=== PATIENT | female | born 1960 | race Caucasian/White ===

== ENCOUNTER 2017-07-20 07:49 | Inpatient (IN) | payer MEDICARE ==
[2017-07-20] MEDS ORDERED: HYDROCODONE/ACETAMINOPHEN 5-325 MG TABLET PO ONE (09:14)
[2017-07-20] MEDS ORDERED: AMPICILLIN SOD/SULBACTAM 3 GM VIAL IV ONE (09:14)
--- NOTE | 2017-07-20 09:14 | ER Document Report ---
ED General - General Chief Complaint: Skin Problem Stated Complaint: SKIN PROBLEM Time Seen by Provider: 07/20/17 08:34 Mode of Arrival: Ambulatory Information source: Patient Notes: 56-year-old female presents with Right to the right wrist with redness. Patient notes she had similar episode a few years ago requiring IV antibiotics and admission. She denies any fevers admits to chills, patient unsure of tetanus status TRAVEL OUTSIDE OF THE [place] IN LAST 30 DAYS: No - HPI Onset: Yesterday Onset/Duration: Persistent Quality of pain: Achy Severity: Mild Pain Level: 1 Associated symptoms: Body/muscle aches, Other Exacerbated by: Denies Relieved by: Denies Similar symptoms previously: Yes Recently seen / treated by doctor: No - Related Data Allergies/Adverse Reactions: smallpox vaccine,live Allergy (Verified 07/20/17 07:54) Past Medical History - Social History Smoking Status: Former Smoker Cigarette use (# per day): No Chew tobacco use (# tins/day): No Smoking Education Provided: No Frequency of alcohol use: Heavy Drug Abuse: Marijuana Family History: Reviewed & Not Pertinent Patient has suicidal ideation: No Patient has homicidal ideation: No Renal/ Medical History: Denies: Hx Peritoneal Dialysis Psychiatric Medical History: Denies: Hx Depression Past Surgical History: Reports: Hx Breast Surgery - left lumpectomy - Immunizations Hx Diphtheria, Pertussis, Tetanus Vaccination: No Review of Systems - Review of Systems Notes: REVIEW OF SYSTEMS: CONSTITUTIONAL : Denies fever, chills, or sweats. Denies recent illness. EENT: Denies eye, ear, throat, or mouth pain or symptoms. Denies nasal or sinus congestion or discharge. Denies throat, tongue, or mouth swelling or difficulty swallowing. CARDIOVASCULAR: Denies chest pain. Denies palpitations or racing or irregular heart beat. Denies ankle edema. RESPIRATORY: Denies cough, cold, or chest congestion. Denies shortness of breath, difficulty breathing, or wheezing. GASTROINTESTINAL: Denies abdominal pain or distention. Denies nausea, vomiting , or diarrhea. Denies blood in vomitus, stools, or per rectum. Denies black, tarry stools. Denies constipation. GENITOURINARY: Denies difficulty urinating, painful urination, burning, frequency, blood in urine, or discharge. FEMALE GENITOURINARY: Denies vaginal bleeding, heavy or abnormal periods, irregular periods. Denies vaginal discharge or odor. MUSCULOSKELETAL: Denies back or neck pain or stiffness. Denies joint pain or swelling. SKIN: Admits to redness pain of the right wrist midforearm HEMATOLOGIC : Denies easy bruising or bleeding. LYMPHATIC: Denies swollen, enlarged glands. NEUROLOGICAL: Denies confusion or altered mental status. Denies passing out or loss of consciousness. Denies dizziness or lightheadedness. Denies headache. Denies weakness or paralysis or loss of use of either side. Denies problems with gait or speech. Denies sensory loss, numbness, or tingling. Denies seizures. PSYCHIATRIC: Denies anxiety or stress. Denies depression, suicidal ideation, or homicidal ideation. ALL OTHER SYSTEMS REVIEWED AND NEGATIVE. PHYSICAL EXAMINATION: GENERAL: Well-appearing, well-nourished and in no acute distress. HEAD: Atraumatic, normocephalic. EYES: Pupils equal round and reactive to light, extraocular movements intact, conjunctiva are normal. ENT: Nares patent, oropharynx clear without exudates. Moist mucous membranes. NECK: Normal range of motion, supple without lymphadenopathy LUNGS: Breath sounds clear to auscultation bilaterally and equal. No wheezes rales or rhonchi. HEART: Regular rate and rhythm without murmurs ABDOMEN: Soft, nontender, nondistended abdomen. No guarding, no rebound. No masses appreciated. Female : deferred Musculoskeletal: Normal range of motion, no pitting or edema. No cyanosis. NEUROLOGICAL: Cranial nerves grossly intact. Normal speech, normal gait. Normal sensory, motor exams PSYCH: Normal mood, normal affect. SKIN: Or wounds noted of the dorsal wrist, no drainage, there is an area of cellulitis from her wrist to elbow as well as streaking up the arm Dictation was performed using [employer] voice recognition software Physical Exam - Vital signs Vitals: Temp Pulse Resp BP Pulse Ox 98.9 F 108 H 16 120/78 98 07/20/17 07:55 07/20/17 07:55 07/20/17 07:55 07/20/17 07:55 07/20/17 07:55 Course - Re-evaluation Re-evalutation: 07/20/17 12:18 Patient has obvious cellulitis secondary to the bite, I believe he will require IV antibiotics due to the significance of the erythema and pain. White count is noted to be 14 blood cultures pending patient started on Unasyn - Vital Signs Vital signs: Temp Pulse Resp BP Pulse Ox 98.9 F 108 H 16 120/78 98 07/20/17 07:55 07/20/17 07:55 07/20/17 07:55 07/20/17 07:55 07/20/17 07:55 - Laboratory Result Diagrams: 07/20/17 09:48 07/20/17 09:48 - Diagnostic Test Radiology reviewed: Image reviewed, Reports reviewed - Soft tissue swelling noted Discharge - Discharge Clinical Impression: Cellulitis of arm, right Cat bite Qualifiers: Encounter type: initial encounter Qualified Code(s): W55.01XA - Bitten by cat, initial encounter Condition: Stable Disposition: ADMITTED INPATIENT Admitting Provider: Hospitalist Unit Admitted: Medical Floor
[2017-07-20] MEDS ORDERED: DIPH/PERTUSS(ACELL)/TETANUS VAC/PF 0.5 ML SYR (>=10YO) IM ONE (09:17)
[2017-07-20] MEDS ORDERED: NORMAL SALINE 1000 ML 1,000 ML IV ONE (09:18)
[2017-07-20] MEDS ORDERED: ACETAMINOPHEN 325 MG TABLET PO PRN ×2 (09:49→17:41)
--- NOTE | 2017-07-20 09:51 | RADIOLOGY REPORT (SQ) ---
EXAM DESCRIPTION: WRIST RIGHT 3 VIEWS COMPLETED DATE/TIME: 07/20/2017 9:33 am REASON FOR STUDY: cat bite COMPARISON: Right hand radiographs 07/21/2015 Right hand MRI 07/22/2015 NUMBER OF VIEWS: Three views. TECHNIQUE: AP, lateral, and oblique radiographic images acquired of the right wrist. LIMITATIONS: None. FINDINGS: Diffuse dorsal right wrist soft tissue swelling. No soft tissue gas or radiopaque foreign body No definite puncture wound into the distal radius or ulna. No definite puncture wound into any carpa l bones. No fracture or malalignment IMPRESSION: Diffuse dorsal right wrist soft tissue swelling. TECHNICAL DOCUMENTATION: JOB ID: [id number] [email or web address]- All Rights Reserved
[2017-07-20 10:04] LABS: ABSOLUTE BASOPHILS # (AUTO) 0.1 10^3/uL (0.0-0.2); ABSOLUTE LYMPHOCYTES (AUTO) 1.3 10^3/uL (0.5-4.7); ABSOLUTE MONOCYTES (AUTO) 0.9 10^3/uL (0.1-1.4); ABSOLUTE NEUT (AUTO) 11.8 10^3/uL (1.7-8.2); BASOPHILS % (AUTO) 0.4 % (0-2); EOSINOPHILS % (AUTO) 0.1 % (0-6); HEMATOCRIT 40.7 % (36.0-47.0); HEMOGLOBIN 14.1 g/dL (12.0-15.5); LYMPHOCYTES % (AUTO) 9.2 % (13-45); MEAN CORPUSCULAR HEMOGLOBIN 32.2 pg (27.0-33.4); MEAN CORPUSCULAR HGB CONC 34.5 g/dL (32.0-36.0); MEAN CORPUSCULAR VOLUME 93 fl (80-97); MONOCYTES % (AUTO) 6.1 % (3-13); PLATELET COUNT 356 10^3/uL (150-450); RED BLOOD COUNT 4.37 10^6/uL (3.72-5.28); RED CELL DISTRIBUTION WIDTH 12.7 % (11.5-14.0); SEGMENTED NEUTROPHILS % (AUTO) 84.2 % (42-78); TOTAL CELLS COUNTED % (AUTO) 100 %
[2017-07-20 10:28] LABS: ALANINE AMINOTRANSFERASE 41 U/L (9-52); ALBUMIN 4.5 g/dL (3.5-5.0); ALKALINE PHOSPHATASE 82 U/L (38-126); ANION GAP 10 (5-19); ASPARTATE AMINO TRANSFERASE 48 U/L (14-36); BILIRUBIN,DIRECT 0.7 mg/dL (0.0-0.4); BILIRUBIN,TOTAL 1.2 mg/dL (0.2-1.3); BLOOD UREA NITROGEN 6 mg/dL (7-20); CARBON DIOXIDE 27 mmol/L (22-30); CHLORIDE 99 mmol/L (98-107); GLUCOSE 109 mg/dL (75-110); POTASSIUM 4.4 mmol/L (3.6-5.0); SODIUM 135.6 mmol/L (137-145); TOTAL PROTEIN 7.7 g/dL (6.3-8.2)
[2017-07-20] MEDS ORDERED: DIAZEPAM 5 MG TABLET PO PRN (10:52)
--- NOTE | 2017-07-20 11:04 | PDOC H&P ---
History of Present Illness Admission Date/PCP: 07/20/17 09:26 Patient complains of: right arm pain and spreading redness History of Present Illness: TORIN SMITH is a 56 year old female who last night was bitten on the right wrist by a feral cat that she was trying to feed. The pain and redness and swelling progressed overnight and was worsening this am so she came to the ED. This happened 2 years ago and she was treated in the hospital with IV antibiotics at that time. She is disabled wtih PTSD and panic disorder, ptherwise recently has been in her normal state of health. She reports no fever but had chills this am, no CP or SOB, no abd pain but some nausea. Past Medical History Cardiac Medical History: Reports: None Pulmonary Medical History: Reports: None EENT Medical History: Reports: None Neurological Medical History: Reports: None Endocrine Medical History: Reports: None Renal/ Medical History: Reports: None Malignancy Medical History: Reports: Other Malignancy History Note: Signig fam hx breast and ovarian CA and she has had 2 left breast biopsies with atypia and regular follow up. 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 Lives with: Spouse/Significant other Smoking Status: Former Smoker Frequency of Alcohol Use: Heavy Amount of Alcoholic Beverages Per Day: 4 Last Alcohol Use: 07/19/17 Hx Recreational Drug Use: No Drugs: None Hx Prescription Drug Abuse: No Past Social History Note: has 2 adult children, she lives in the local area Family History Family History: Reviewed & Not Pertinent, Malignancy - mother with complications related to breast CA, multiple family members with breast, ovarian and gastrica CA Parental Family History Reviewed: Yes - see above, inaddition her father in MVA when she was a child Children Family History Reviewed: Yes - reviewed, none significant Sibling(s) Family History Reviewed.: Yes - reviewed Medication/Allergy Home Medications: Diazepam [Valium] 5 mg PO DAILYP PRN 07/20/17 Trazodone HCl [Desyrel 50 mg Tablet] 50 mg PO HSP PRN 07/20/17 Allergies/Adverse Reactions: smallpox vaccine,live Allergy (Verified 07/20/17 07:54) Review of Systems Constitutional: PRESENT: chills. ABSENT: fever(s), headache(s), weakness Eyes: ABSENT: visual disturbances Ears: ABSENT: hearing changes Nose, Mouth, and Throat: ABSENT: headache(s), sore throat Cardiovascular: PRESENT: edema. ABSENT: chest pain, dyspnea on exertion Respiratory: ABSENT: cough, dyspnea Gastrointestinal: PRESENT: nausea. ABSENT: abdominal pain, constipation, diarrhea, vomiting Genitourinary: ABSENT: difficulty urinating Musculoskeletal: PRESENT: joint swelling Integumentary: PRESENT: erythema, lesions, wounds Neurological: ABSENT: confusion, dizziness, memory loss, numbness, syncope Psychiatric: PRESENT: other - PTSD and panic DO longstanding Endocrine: ABSENT: cold intolerance, heat intolerance, polydipsia, polyphagia, polyuria Hematologic/Lymphatic: ABSENT: easy bleeding, easy bruising Allergic/Immunologic: ABSENT: seasonal rhinorrhea Physical Exam Vital Signs: Temp Pulse Resp BP Pulse Ox 98.9 F 108 H 16 120/78 98 07/20/17 07:55 07/20/17 07:55 07/20/17 07:55 07/20/17 07:55 07/20/17 07:55 General appearance: PRESENT: mild distress, thin, well-developed, well-nourished Head exam: PRESENT: atraumatic, normocephalic Eye exam: PRESENT: conjunctiva pink, EOMI. ABSENT: periorbital swelling, scleral icterus Ear exam: PRESENT: normal external ear exam. ABSENT: bleeding Mouth exam: PRESENT: moist, neck supple Neck exam: ABSENT: lymphadenopathy Respiratory exam: PRESENT: clear to auscultation josette, symmetrical, unlabored. ABSENT: accessory muscle use, chest wall tenderness, crackles, decreased breath sounds, prolonged expiratory phas, rales, retraction, rhonchi, stridor, tachypnea, wheezes Cardiovascular exam: PRESENT: tachycardia. ABSENT: systolic murmur Vascular exam: PRESENT: normal capillary refill GI/Abdominal exam: PRESENT: normal bowel sounds, soft. ABSENT: ascites, distended, firm, guarding, rebound, rigid, tenderness Rectal exam: PRESENT: deferred Gentrourinary exam: ABSENT: indwelling catheter Extremities exam: PRESENT: joint swelling, other - right wrist with edema and TTP, small puncture wound with no exudate Neurological exam: PRESENT: alert, altered, awake, oriented to person, oriented to place, oriented to situation, CN II-XII grossly intact Psychiatric exam: PRESENT: anxious Focused psych exam: ABSENT: paranoid, pressured speech, psychomotor agitation, restlessness Skin exam: PRESENT: other - cellulitis right wrist with proximal spread up to mid bicepts Results Laboratory Results: 07/20/17 09:48 07/20/17 09:48 WBC 14.0 H RBC 4.37 Hgb 14.1 Hct 40.7 MCV 93 MCH 32.2 MCHC 34.5 RDW 12.7 Plt Count 356 Seg Neutrophils % 84.2 H Lymphocytes % 9.2 L Monocytes % 6.1 Eosinophils % 0.1 Basophils % 0.4 Absolute Neutrophils 11.8 H Absolute Lymphocytes 1.3 Absolute Monocytes 0.9 Absolute Eosinophils 0.0 Absolute Basophils 0.1 Impressions: Wrist X-Ray 07/20/17 09:14 IMPRESSION: Diffuse dorsal right wrist soft tissue swelling. -no foreign body seen Assessment & Plan - Diagnosis (1) Tachycardia determined by examination of pulse Is this a current diagnosis for this admission?: Yes Plan: related to pain and infection, will treat pain and infection as per belwo, monitor HR on tele (2) Cellulitis of arm, right Is this a current diagnosis for this admission?: Yes Plan: secondary to cat bite, will cont unasym as started in ED, blood cultures pending , IV fluids, monitor cellulitis for improvment and change ABX if worsens (3) Leukocytosis Qualifiers: Qualified Code(s): D72.829 - Elevated white blood cell count, unspecified Is this a current diagnosis for this admission?: Yes Plan: due to infection from cat bite, will cont abx and check CBC in the am (4) Acute pain due to injury Is this a current diagnosis for this admission?: Yes Plan: will use tylenol 650 mg q 6 hrs and ibuprofen 600 mg q 6 hrs for 2 days. If this is not effective will consider low dose opioid. (5) PTSD (post-traumatic stress disorder) Is this a current diagnosis for this admission?: Yes Plan: will order her home med valium 5 mg pi BID prn panic (6) Insomnia Qualifiers: Insomnia type: drug-induced Qualified Code(s): F19.982 - Other psychoactive substance use, unspecified with psychoactive substance-induced sleep disorder Plan: secondary to wellbutrin use, now DCed but insomnia persists. WIll her her home trazodone 50 mg po HS prn. - Time Time Spent: Greater than 70 Minutes Medications reviewed and adjusted accordingly: Yes Anticipated discharge: Home Within: within 72 hours - Inpatient Certification Medical Necessity: Need Close Monitoring Due to Risk of Patient Decompensation, Need For IV Fluids, Need for IV Antibiotics Post Hospital Care: D/C Manager Android Documentation
[2017-07-20] MEDS ORDERED: PIPERACILLIN/TAZOBACTAM 3.375 GM VIAL IV SCH (11:15)
[2017-07-20] MEDS ORDERED: ACETAMINOPHEN 325 MG TABLET PO SCH (12:00)
[2017-07-20] MEDS ORDERED: IBUPROFEN 600 MG TABLET PO SCH (12:00)
[2017-07-20] MEDS: ENOXAPARIN SODIUM INJ 40 MG/0.4 ML DISP.SYRIN SUBCUT SCH (12:12)
[2017-07-20] MEDS: PIPERACILLIN SODIUM/TAZOBACTAM 3.375 GM in NORMAL SALINE 100 ML IV SCH ×3 (13:10→23:10)
[2017-07-20] MEDS: RINGERS SOLUTION,LACTATED 1,000 ML IV SCH (13:12)
[2017-07-20] MEDS: IBUPROFEN 800 MG TABLET PO PRN (18:16)
[2017-07-20] MEDS: TRAZODONE HCL 50 MG TABLET PO PRN (23:10)
[2017-07-21 05:24] LABS: HEMATOCRIT 35.3 % (36.0-47.0); MEAN CORPUSCULAR HEMOGLOBIN 32.1 pg (27.0-33.4); MEAN CORPUSCULAR VOLUME 94 fl (80-97); PLATELET COUNT 272 10^3/uL (150-450); RED BLOOD COUNT 3.74 10^6/uL (3.72-5.28); RED CELL DISTRIBUTION WIDTH 13.1 % (11.5-14.0); WHITE BLOOD COUNT 8.9 10^3/uL (4.0-10.5)
[2017-07-21] MEDS: PIPERACILLIN SODIUM/TAZOBACTAM 3.375 GM in NORMAL SALINE 100 ML IV SCH ×4 (05:32→23:53)
[2017-07-21] MEDS: RINGERS SOLUTION,LACTATED 1,000 ML IV SCH ×2 (05:33→13:41)
[2017-07-21] MEDS: IBUPROFEN 800 MG TABLET PO PRN ×2 (05:33→14:40)
[2017-07-21 05:49] LABS: BLOOD UREA NITROGEN 5 mg/dL (7-20); CALCIUM 9.4 mg/dL (8.4-10.2); CHLORIDE 106 mmol/L (98-107); GLUCOSE 92 mg/dL (75-110)
[2017-07-21 06:02] LABS: ANION GAP 5 (5-19); CARBON DIOXIDE 26 mmol/L (22-30); POTASSIUM 3.9 mmol/L (3.6-5.0); SODIUM 137.4 mmol/L (137-145)
[2017-07-21] MEDS: ENOXAPARIN SODIUM INJ 40 MG/0.4 ML DISP.SYRIN SUBCUT SCH (10:56)
[2017-07-21] MEDS ORDERED: VANCOMYCIN HCL INJ 1000 MG VIAL IV SCH (12:15)
[2017-07-21] MEDS: TRAMADOL HCL 50 MG TABLET PO PRN ×2 (12:16→18:59)
--- NOTE | 2017-07-21 14:27 | RADIOLOGY REPORT (SQ) ---
EXAM DESCRIPTION: FOREARM RIGHT COMPLETED DATE/TIME: 07/21/2017 2:09 pm REASON FOR STUDY: cat big, worsening swelling COMPARISON: None. NUMBER OF VIEWS: Two views. TECHNIQUE: Two radiographic images acquired of the right forearm, including elbow and wrist in at le ast one projection. LIMITATIONS: None. FINDINGS: MINERALIZATION: Normal. BONES: No acute fracture. No worrisome bone lesions. SOFT TISSUES: No obvious swelling or foreign body. OTHER: No other significant finding. IMPRESSION: NEGATIVE STUDY OF THE RIGHT FOREARM. NO RADIOGRAPHIC EVIDENCE OF ACUTE INJURY. TECHNICAL DOCUMENTATION: JOB ID: [id number] [employer]- All Rights Reserved
[2017-07-21] MEDS: VANCOMYCIN HCL 750 MG in DEXTROSE 5%-WATER 250 ML IV SCH (14:31)
--- NOTE | 2017-07-21 15:54 | PDOC PROGRESS REPORT ---
Subjective Progress Note for:: 07/21/17 Subjective:: Admitted yesterday after cat bite to right forearm. Was started on Zosyn. Overnight and this AM, states that pain and swelling is worsening. Feels erythema has extended. Subjective fevers. Some chills. Denies CP, SOB, abdominal pain, NV. THis is second cat bite, last was in 2016. Reason For Visit: CELLULITIS OF RIGHT ARM Physical Exam Vital Signs: Temp Pulse Resp BP Pulse Ox 98.7 F 87 12 115/71 97 07/21/17 11:00 07/21/17 11:00 07/21/17 08:00 07/21/17 11:00 07/21/17 11:00 Intake & Output 07/20/17 07/21/17 07/22/17 06:59 06:59 06:59 Intake Total 4062 Output Total 2 Balance 4060 Weight 59.1 kg General appearance: PRESENT: mild distress - Secondary to pain Head exam: PRESENT: atraumatic Mouth exam: PRESENT: moist Respiratory exam: PRESENT: unlabored. ABSENT: tachypnea, wheezes Cardiovascular exam: PRESENT: RRR. ABSENT: systolic murmur, tachycardia GI/Abdominal exam: PRESENT: soft. ABSENT: distended, tenderness Extremities exam: PRESENT: other - Right upper extremity swelling and erythema extending from hand to elbow. 2 bite tate visible. No active drainage. Extremity warm. Good radial pulses. No evidence of compartment syndrome. Neurological exam: PRESENT: alert, awake, CN II-XII grossly intact Psychiatric exam: ABSENT: anxious Skin exam: PRESENT: warm Results Laboratory Results: 07/21/17 05:10 07/21/17 05:10 07/21/17 07/21/17 05:10 05:10 WBC 8.9 RBC 3.74 Hgb 12.0 D Hct 35.3 L MCV 94 MCH 32.1 MCHC 34.0 RDW 13.1 Plt Count 272 Sodium 137.4 Potassium 3.9 Chloride 106 Carbon Dioxide 26 Anion Gap 5 BUN 5 L Creatinine 0.63 Est GFR ( Amer) > 60 Est GFR (Non-Af Amer) > 60 Glucose 92 Calcium 9.4 Impressions: Wrist X-Ray 07/20/17 09:14 IMPRESSION: Diffuse dorsal right wrist soft tissue swelling. Forearm X-Ray 07/21/17 00:00 IMPRESSION: NEGATIVE STUDY OF THE RIGHT FOREARM. NO RADIOGRAPHIC EVIDENCE OF ACUTE INJURY. Assessment & Plan - Diagnosis (1) Cat bite Qualifiers: Encounter type: initial encounter Qualified Code(s): W55.01XA - Bitten by cat, initial encounter Is this a current diagnosis for this admission?: Yes Plan: Right forearm Bite by stray [place] cat - Right Upper extremity warm and erythematous on exam with extension of erythema beyond black marker broader from 2/2 - Blood cultures * 2 NGTD at 24 hours - Was on Zosyn, due to worsening erythema, swelling, and pain, broadened coverage and added Vanc to cover MRSA - Repeat xray today without evidence of soft tissue swelling - If pain persists or there is any evidence of compartment syndrome, will consult general surgery or ortho for evaluation (2) Acute pain due to injury Is this a current diagnosis for this admission?: Yes Plan: Pain worse on 2/3 - Added Tramadol 25mg q6 hours PRN, has ibuprofen 800mg q3 horus PRN - OK with adding IV pain meds if pain worsens - CTM (3) Cellulitis of arm, right Is this a current diagnosis for this admission?: Yes Plan: Per above. - Time Time Spent with patient: Less than 15 minutes Anticipated discharge: Home, Home with Homehealth - Possibly if IV antibiotics are required Within: within 48 hours
[2017-07-21] MEDS: TRAZODONE HCL 50 MG TABLET PO PRN (22:31)
[2017-07-22] MEDS: VANCOMYCIN HCL 750 MG in DEXTROSE 5%-WATER 250 ML IV SCH ×2 (02:50→13:53)
[2017-07-22] MEDS: RINGERS SOLUTION,LACTATED 1,000 ML IV SCH ×2 (02:50→08:57)
[2017-07-22] MEDS: PIPERACILLIN SODIUM/TAZOBACTAM 3.375 GM in NORMAL SALINE 100 ML IV SCH ×3 (05:14→17:51)
[2017-07-22] MEDS: TRAMADOL HCL 50 MG TABLET PO PRN ×2 (05:15→17:50)
[2017-07-22 06:09] LABS: HEMATOCRIT 33.2 % (36.0-47.0); HEMOGLOBIN 11.1 g/dL (12.0-15.5); MEAN CORPUSCULAR HEMOGLOBIN 31.8 pg (27.0-33.4); MEAN CORPUSCULAR HGB CONC 33.5 g/dL (32.0-36.0); MEAN CORPUSCULAR VOLUME 95 fl (80-97); PLATELET COUNT 252 10^3/uL (150-450); RED BLOOD COUNT 3.51 10^6/uL (3.72-5.28); RED CELL DISTRIBUTION WIDTH 12.7 % (11.5-14.0)
[2017-07-22 06:33] LABS: ANION GAP 5 (5-19); BLOOD UREA NITROGEN 4 mg/dL (7-20); CALCIUM 9.3 mg/dL (8.4-10.2); CARBON DIOXIDE 25 mmol/L (22-30); CHLORIDE 106 mmol/L (98-107); GLUCOSE 83 mg/dL (75-110); SODIUM 136.1 mmol/L (137-145)
[2017-07-22] MEDS: IBUPROFEN 800 MG TABLET PO PRN (08:54)
[2017-07-22] MEDS: ENOXAPARIN SODIUM INJ 40 MG/0.4 ML DISP.SYRIN SUBCUT SCH (08:54)
[2017-07-22] MEDS ORDERED: IBUPROFEN 600 MG TABLET PO PRN ×3 (12:00)
[2017-07-22] MEDS ORDERED: ACETAMINOPHEN 325 MG TABLET PO PRN ×3 (12:00)
--- NOTE | 2017-07-22 17:53 | PDOC PROGRESS REPORT ---
Subjective Progress Note for:: 07/22/17 Subjective:: Doing much better. Erythema, pain, and swelling reduced. Good pain control with current pain regimen. Wants to do IV pain meds for one more day and then switch to PO. Denies CP, SOB, abdominal pain, NV. LIkely discharge tomorrow.. Reason For Visit: CELLULITIS OF RIGHT ARM Physical Exam Vital Signs: Temp Pulse Resp BP Pulse Ox 98.0 F 61 18 114/69 100 07/22/17 15:40 07/22/17 15:40 07/22/17 15:40 07/22/17 15:40 07/22/17 15:40 Intake & Output 07/21/17 07/22/17 07/23/17 06:59 06:59 06:59 Intake Total 4062 4945 542 Output Total 2 Balance 4060 4945 542 Weight 59.1 kg 59.1 kg General appearance: PRESENT: no acute distress, thin Head exam: PRESENT: atraumatic, normocephalic Mouth exam: PRESENT: moist Respiratory exam: PRESENT: unlabored Cardiovascular exam: PRESENT: RRR. ABSENT: tachycardia GI/Abdominal exam: PRESENT: soft. ABSENT: distended Extremities exam: PRESENT: other - Right upper extremity swelling and erythema improved compared to 07/21 exam. 2 bite tate visible - unchaged. No active drainage. Extremity warm. Good radial pulse Neurological exam: PRESENT: alert, awake, CN II-XII grossly intact Skin exam: PRESENT: warm Results Laboratory Results: 07/22/17 05:23 07/22/17 05:23 07/22/17 07/22/17 05:23 05:23 WBC 8.0 RBC 3.51 L Hgb 11.1 L Hct 33.2 L MCV 95 MCH 31.8 MCHC 33.5 RDW 12.7 Plt Count 252 Sodium 136.1 L Potassium 4.0 Chloride 106 Carbon Dioxide 25 Anion Gap 5 BUN 4 L Creatinine 0.65 Est GFR ( Amer) > 60 Est GFR (Non-Af Amer) > 60 Glucose 83 Calcium 9.3 Impressions: Wrist X-Ray 07/20/17 09:14 IMPRESSION: Diffuse dorsal right wrist soft tissue swelling. Forearm X-Ray 07/21/17 00:00 IMPRESSION: NEGATIVE STUDY OF THE RIGHT FOREARM. NO RADIOGRAPHIC EVIDENCE OF ACUTE INJURY. Assessment & Plan - Diagnosis (1) Cat bite Qualifiers: Encounter type: initial encounter Qualified Code(s): W55.01XA - Bitten by cat, initial encounter Is this a current diagnosis for this admission?: Yes Plan: Right forearm Bite by stray [place] cat, improved - Right Upper extremity warm and erythematous decreased - Blood cultures * 2 NGTD at 48 hours - Currently on Vanc and Zosyn, continue until 07/23 and then can switch to PO with MRSA coverage - D/c to home on 07/23 (2) Acute pain due to injury Is this a current diagnosis for this admission?: Yes Plan: Pain much better controlled on 07/22 - Continue Tramadol 25mg q6 hours PRN + ibuprofen 800mg q3 horus PRN (3) Cellulitis of arm, right Is this a current diagnosis for this admission?: Yes - Time Time Spent with patient: Less than 15 minutes Anticipated discharge: Home Within: within 24 hours
[2017-07-23] MEDS: PIPERACILLIN SODIUM/TAZOBACTAM 3.375 GM in NORMAL SALINE 100 ML IV SCH ×2 (01:19→05:56)
[2017-07-23] MEDS: TRAZODONE HCL 50 MG TABLET PO PRN (01:20)
[2017-07-23] MEDS: VANCOMYCIN HCL 750 MG in DEXTROSE 5%-WATER 250 ML IV SCH (01:55)
[2017-07-23] MEDS: IBUPROFEN 800 MG TABLET PO PRN (04:16)
[2017-07-23 06:19] LABS: HEMATOCRIT 32.7 % (36.0-47.0); HEMOGLOBIN 10.9 g/dL (12.0-15.5); MEAN CORPUSCULAR HEMOGLOBIN 31.5 pg (27.0-33.4); MEAN CORPUSCULAR HGB CONC 33.4 g/dL (32.0-36.0); MEAN CORPUSCULAR VOLUME 94 fl (80-97); PLATELET COUNT 259 10^3/uL (150-450); RED BLOOD COUNT 3.47 10^6/uL (3.72-5.28); RED CELL DISTRIBUTION WIDTH 12.9 % (11.5-14.0); WHITE BLOOD COUNT 6.2 10^3/uL (4.0-10.5)
[2017-07-23 06:38] LABS: ANION GAP 5 (5-19); BLOOD UREA NITROGEN 4 mg/dL (7-20); CALCIUM 9.4 mg/dL (8.4-10.2); CARBON DIOXIDE 28 mmol/L (22-30); CHLORIDE 106 mmol/L (98-107); GLUCOSE 83 mg/dL (75-110); POTASSIUM 3.7 mmol/L (3.6-5.0); SODIUM 139.2 mmol/L (137-145)
[2017-07-23 08:02] VITALS: BP 119/74
--- NOTE | 2017-07-23 15:31 | PDOC DISCHARGE SUMMARY ---
General - Admit/Disc Date/PCP Admission Date/Primary Care Provider: 07/20/17 09:26 Discharge Date: 07/23/17 - Discharge Diagnosis (1) Cellulitis of arm, right Is this a current diagnosis for this admission?: Yes (2) Cat bite Is this a current diagnosis for this admission?: Yes (3) Acute pain due to injury Is this a current diagnosis for this admission?: Yes (4) PTSD (post-traumatic stress disorder) Is this a current diagnosis for this admission?: Yes - Additional Information Resuscitation Status: Full Code Discharge Diet: As Tolerated Discharge Activity: Activity As Tolerated Prescriptions: Amox Tr/Potassium Clavulanate [Augmentin 875-125 mg Tablet] 1 tab PO BID #20 tablet Tramadol HCl [Ultram 50 mg Tablet] 25 mg PO Q6HP PRN #14 tablet PRN Reason: Home Medications: Diazepam [Valium] 5 mg PO DAILYP PRN 07/20/17 Trazodone HCl [Desyrel 50 mg Tablet] 50 mg PO HSP PRN 07/20/17 Amox Tr/Potassium Clavulanate [Augmentin 875-125 mg Tablet] 1 tab PO BID #20 tablet 07/23/17 Tramadol HCl [Ultram 50 mg Tablet] 25 mg PO Q6HP PRN #14 tablet 07/23/17 History of Present Illness History of Present Illness: TORIN SMITH is a 56 year old female who was bitten on the right wrist by a feral cat that she was trying to feed. The pain, redness and swelling progressed overnight and she came to the ED. Had similar episode 2 years ago and she was treated in the hospital with IV antibiotics at that time. She is disabled with PTSD and panic disorder, otherwise recently has been in her normal state of health. She reported no fever but had chills and nausea on the day of presentation to ED.. Hospital Course Hospital Course: Patient was admitted under the hospitalist service. Patient was placed on Zosyn and vancomycin with further improvement of cellulitic process. Patient has been educated about local care of puncture wounds. Since patient had achieved maximum benefit of hospitalization stay prompted to discharge under stable condition Physical Exam Vital Signs: Temp Pulse Resp BP Pulse Ox 98.0 F 74 17 112/71 97 07/22/17 23:16 07/22/17 23:16 07/22/17 23:16 07/22/17 23:16 07/22/17 23:16 Intake & Output 07/22/17 07/23/17 07/24/17 06:59 06:59 06:59 Intake Total 4945 4068 Output Total 3000 Balance 4945 1068 Weight 59.1 kg 60 kg General appearance: PRESENT: cooperative, well-developed, well-nourished Head exam: PRESENT: atraumatic, normocephalic Eye exam: PRESENT: EOMI, PERRLA Ear exam: PRESENT: normal external ear exam Mouth exam: PRESENT: moist, neck supple Neck exam: PRESENT: full ROM. ABSENT: JVD, lymphadenopathy, tenderness Respiratory exam: PRESENT: clear to auscultation josette Cardiovascular exam: PRESENT: RRR. ABSENT: diastolic murmur, systolic murmur Vascular exam: PRESENT: normal capillary refill GI/Abdominal exam: PRESENT: normal bowel sounds, soft. ABSENT: tenderness Extremities exam: PRESENT: other - Puncture wounds noted to the dorsal aspect of right forearm. Redness and swelling improved when compared to admission ( patient showed a picture of the right forearm obtained through her cell phone) Neurological exam: PRESENT: alert, awake, oriented to person, oriented to place , oriented to time, oriented to situation, CN II-XII grossly intact Psychiatric exam: PRESENT: appropriate affect, normal mood Skin exam: PRESENT: other - Please refer to extremities Results Laboratory Results: 07/23/17 05:53 07/23/17 05:53 07/23/17 07/23/17 07/23/17 01:45 05:53 05:53 WBC 6.2 RBC 3.47 L Hgb 10.9 L Hct 32.7 L MCV 94 MCH 31.5 MCHC 33.4 RDW 12.9 Plt Count 259 Sodium 139.2 Potassium 3.7 Chloride 106 Carbon Dioxide 28 Anion Gap 5 BUN 4 L Creatinine 0.63 0.63 Est GFR ( Amer) > 60 > 60 Est GFR (Non-Af Amer) > 60 > 60 Glucose 83 Calcium 9.4 Impressions: Wrist X-Ray 07/20/17 09:14 IMPRESSION: Diffuse dorsal right wrist soft tissue swelling. Forearm X-Ray 07/21/17 00:00 IMPRESSION: NEGATIVE STUDY OF THE RIGHT FOREARM. NO RADIOGRAPHIC EVIDENCE OF ACUTE INJURY. Plan Discharge Plan: Discharge home Time Spent: Less than 30 Minutes
== END 2017-07-23 10:57 | disposition home or self-care (01) | DRG 603 ==
LOC: ER 07:49 → EH 09:26 → 4S 12:15
PROVIDERS: ADMIT Emergency Medicine; ATTEND Emergency Medicine
PROC: 3E0234Z Introduction of Serum, Toxoid and Vaccine into Muscle, Percutaneous Approach (ICD-10-PCS; principal; 2017-07-20)
DX: L03.113 Cellulitis of right upper limb (principal); W55.01XA Bitten by cat, initial encounter; Y99.9 Unspecified external cause status; F41.0 Panic disorder [episodic paroxysmal anxiety]; F43.10 Post-traumatic stress disorder, unspecified; G89.11 Acute pain due to trauma; D72.829 Elevated white blood cell count, unspecified; G47.00 Insomnia, unspecified; T43.295A Adverse effect of other antidepressants, initial encounter; Z23 Encounter for immunization; Z79.899 Other long term (current) drug therapy; Z80.3 Family history of malignant neoplasm of breast; Z80.41 Family history of malignant neoplasm of ovary; Z87.891 Personal history of nicotine dependence; Z88.7 Allergy status to serum and vaccine; Z80.0 Family history of malignant neoplasm of digestive organs
CPT/HCPCS: 36415; 80048; 80053; 80202; 82565; 85025; 85027; 87040; 90715; 99284; J0295; J1650; J2543; J3370; J7030; J7060; J7120

== ENCOUNTER → 2017-08-14 | Outpatient (CLI) | payer MEDICARE ==
--- NOTE | 2017-08-14 16:48 | RADIOLOGY REPORT (SQ) ---
EXAM DESCRIPTION: CHEST PA/LATERAL COMPLETED DATE/TIME: 08/14/2017 4:11 pm REASON FOR STUDY: CHRONIC OBSTRUCTIVE PULMONARY DISEASE, UNSPECIFIED COMPARISON: None. EXAM PARAMETERS: NUMBER OF VIEWS: two views TECHNIQUE: Digital Frontal and Lateral radiographic views of the chest acquired. RADIATION DOSE: NA LIMITATIONS: none FINDINGS: LUNGS AND PLEURA: Lungs are hyperinflated and hyperlucent from obstructive disease. No fo nish infiltrates. No pleural effusion. No pneumothorax. MEDIASTINUM AND HILAR STRUCTURES: No masses or contour abnormalities. HEART AND VASCULAR STRUCTURES: Heart normal size. No evidence for failure. BONES: Osteoporotic HARDWARE: None in the chest. OTHER: No other significant finding. IMPRESSION: Obstructive lung disease. No acute finding TECHNICAL DOCUMENTATION: JOB ID: [id number] [employer]- All Rights Reserved Reading location - IP/workstation name: [email or web address]
--- NOTE | 2017-08-14 20:34 | EKG REPORT ---
SEVERITY:- NORMAL ECG - SINUS RHYTHM : Confirmed by: Nabil Sneed MD 14-Aug-2017 20:34:18
== END ==
LOC: OD 15:36
PROVIDERS: ATTEND Obstetrics & Gynecology Gynecology
DX: R07.9 Chest pain, unspecified (principal); J44.9 Chronic obstructive pulmonary disease, unspecified
CPT/HCPCS: 71046; 93005; 93010

== ENCOUNTER → 2017-10-12 | Outpatient (CLI) | payer MEDICARE ==
--- NOTE | 2017-10-12 13:29 | RADIOLOGY REPORT (SQ) ---
EXAM DESCRIPTION: CT LUNG CANCER SCREENING COMPLETED DATE/TIME: 10/12/2017 10:02 am REASON FOR STUDY: Z87.891 PERSONAL HISTORY OF NICOTINE DEPENDENCE Z87.891 PERSONAL HISTORY OF NICOT INE DEPENDENCE Has the patient had a Chest CT scan within the past year? Was the patient offered tobacco cessation counseling? Was the patient engaged in shared decision making for this test? Does the patient have signs or symptoms of Lung Cancer? Is the patient a smoker? How many packs per year? How many years since quitting smoking? Patients age: COMPARISON: None. TECHNIQUE: Low Dose CT scan performed of the chest without intravenous contrast for purposes of scre ening for lung cancer. Images reviewed with lung, soft tissue and bone windows. Reconstructed coron al and sagittal MPR images reviewed. All images stored on PACS. All CT scanners at this facility use dose modulation, iterative reconstruction, and/or weight based d osing when appropriate to reduce radiation dose to as low as reasonably achievable (ALARA). [facility]: Dose Right [facility]: CareDose [facility]: Dose Right [facility]: Teradose 4D [facility]: Tilt RADIATION DOSE: CT Rad equipment meets quality standard of care and radiation dose reduction techniq ues were employed. CTDIvol: 1.9 mGy. DLP: 78 mGy-cm. mGy. . LIMITATIONS: None FINDINGS: LUNGS AND PLEURA: No masses or nodules. No pleural effusions or calcifications. No pne umothorax. No scarring or interstitial changes. HILAR AND MEDIASTINAL STRUCTURES: No identified masses. No abnormal nodes. HEART AND VASCULAR STRUCTURES: No aneurysm. Small pericardial effusion. No cardiac devices. CORONARY ARTERY CALCIFICATIONS: Mild to moderate calcifications. UPPER ABDOMEN, THYROID, BONES, OTHER SOFT TISSUES: No significant findings. IMPRESSION: NO SIGNIFICANT FINDING IN THE LUNGS ON NON-CONTRASTED CHEST CT. OTHER FINDINGS ABOVE. LUNGRADS: LUNGRADS: 1 NEGATIVE. NO NODULES, OR DEFINITELY BENIGN NODULES MODIFIER: NONE RECOMMENDATION: Continue annual screening with LDCT in 12 months. COMMENT: CRITERIA: No lung nodules. Nodules with specific calcifications: Complete, central, popcorn, concentric rings and fat containin g nodules. TECHNICAL DOCUMENTATION: JOB ID: [id number] Quality ID # [id number]: Final reports with documentation of one or more dose reduction techniques (e.g., Au tomated exposure control, adjustment of the mA and/or kV according to patient size, use of iterative reconstruction technique) 2010 [facility] [place] Radiology Reading location - IP/workstation name: [email or web address]
== END ==
LOC: RAD 10:02
PROVIDERS: ATTEND Physician Assistant
DX: Z12.2 Encounter for screening for malignant neoplasm of respiratory organs (principal); Z87.891 Personal history of nicotine dependence
CPT/HCPCS: G0297

== ENCOUNTER → 2019-04-08 | Outpatient (CLI) | payer MEDICARE ==
--- NOTE | 2019-04-09 08:42 | RADIOLOGY REPORT (SQ) ---
EXAM DESCRIPTION: CT LUNG CANCER SCREENING COMPLETED DATE/TIME: 04/08/2019 10:37 am REASON FOR STUDY: PERSONAL HISTORY OF NICOTINE DEPENDENCE Z87.891 PERSONAL HISTORY OF NICOTINE DEPE NDENCE Has the patient had a Chest CT scan within the past year? No Was the patient offered tobacco cessation counseling? Yes Was the patient engaged in shared decision making for this test? Yes Does the patient have signs or symptoms of Lung Cancer? No Is the patient a smoker? Yes How many pack years? 40 years How many years since quitting smoking? 27 months Patients age: 58 COMPARISON: 10/12/2017 TECHNIQUE: Low Dose CT scan performed of the chest without intravenous contrast for purposes of scre ening for lung cancer. Images reviewed with lung, soft tissue and bone windows. Reconstructed coron al and sagittal MPR images reviewed. All images stored on PACS. All CT scanners at this facility use dose modulation, iterative reconstruction, and/or weight based d osing when appropriate to reduce radiation dose to as low as reasonably achievable (ALARA). [facility]: Dose Right [facility]: CareDose [facility]: Dose Right [facility]: Teradose 4D [facility]: [employer] RADIATION DOSE: mGy. . LIMITATIONS: None FINDINGS: LUNGS AND PLEURA: No masses or nodules. No pleural effusions or calcifications. No pne umothorax. No scarring or interstitial changes. HILAR AND MEDIASTINAL STRUCTURES: No identified masses. No abnormal nodes. HEART AND VASCULAR STRUCTURES: No aortic aneurysm. No pericardial effusion. No cardiac devices. CORONARY ARTERY CALCIFICATIONS: No significant calcifications. UPPER ABDOMEN, THYROID, BONES, OTHER SOFT TISSUES: No significant findings. IMPRESSION: NO SIGNIFICANT FINDING IN THE LUNGS ON NON-CONTRASTED CHEST CT. NO OTHER CLINICALLY SIGNIFICANT/POTENTIALLY CLINICALLY SIGNIFICANT FINDINGS LUNGRADS: LUNGRADS: 1 NEGATIVE. NO NODULES, OR DEFINITELY BENIGN NODULES MODIFIER: NONE RECOMMENDATION: Continue annual screening with LDCT in 12 months. COMMENT: CRITERIA: No lung nodules. Nodules with specific calcifications: Complete, central, popcorn, concentric rings and fat containin g nodules. TECHNICAL DOCUMENTATION: JOB ID: [id number] Quality ID # [id number]: Final reports with documentation of one or more dose reduction techniques (e.g., Au tomated exposure control, adjustment of the mA and/or kV according to patient size, use of iterative reconstruction technique) 2010 [facility] Radiology Reading location - IP/workstation name: [email or web address]
== END ==
LOC: RAD 10:26
PROVIDERS: ATTEND Registered Nurse
DX: Z12.2 Encounter for screening for malignant neoplasm of respiratory organs (principal); Z87.891 Personal history of nicotine dependence
CPT/HCPCS: G0297